=== PATIENT | male | born 2000 | race African-American/Black ===

== ENCOUNTER 2023-03-11 00:06 | Emergency (ER) | payer OTHER ==
[~2023-03-11] VITALS: Ht 165.1 cm; Wt 81.6 kg
[2023-03-11 00:20] VITALS: TEMP 98.6
[2023-03-11 01:52] LABS: PLATELET COUNT 231 K/uL (142-355)
[2023-03-11 03:02] VITALS: BP 112/68
== END 2023-03-11 03:02 | disposition home or self-care (01) ==
LOC: ED 00:06
PROVIDERS: Emergency Medicine Emergency Medical Services
DX: E87.6 Hypokalemia (principal); F17.210 Nicotine dependence, cigarettes, uncomplicated
CPT/HCPCS: 36415; 80048; 84484; 85027; 93005; 96361; 96374; 99284; J1885